=== PATIENT | female | born 1955 | race American Indian/Alaskan Native ===

== ENCOUNTER 2018-05-07 08:50 | Emergency (ER) | payer OTHER, BC ==
[2018-05-07] MEDS ORDERED: COZAAR PO ONE (09:31)
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
[2018-05-07] MEDS ORDERED: TYLENOL PO ONE (11:28)
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
[2018-05-07 11:55] VITALS: BP 170/60
--- NOTE | 2018-05-08 07:32 | XRay Report ---
THORACIC SPINE, 2 VIEWS: HISTORY: back pain. This exam is just presented to me for interpretation. There is moderate to severe multilevel degenerative disc disease throughout the thoracic spine. No compression deformity, subluxation or posterior rib fracture is detected. Bone mineralization is borderline. IMPRESSION: Thoracic spondylosis. No acute injury is identified on x-ray.
== END 2018-05-07 13:01 | disposition left against medical advice (07) ==
LOC: ED 08:50
DX: S86.912A Strain of unspecified muscle(s) and tendon(s) at lower leg level, left leg, initial encounter (principal); S13.4XXA Sprain of ligaments of cervical spine, initial encounter; S39.012A Strain of muscle, fascia and tendon of lower back, initial encounter; I10 Essential (primary) hypertension; M19.90 Unspecified osteoarthritis, unspecified site; Z88.6 Allergy status to analgesic agent; V89.2XXA Person injured in unspecified motor-vehicle accident, traffic, initial encounter; Y93.89 Activity, other specified; Y92.488 Other paved roadways as the place of occurrence of the external cause; Y99.8 Other external cause status
CPT/HCPCS: 72070; 72100; 99283